=== PATIENT | male | born 1950 | race Caucasian/White ===

== ENCOUNTER 2020-03-04 14:02 | Emergency (ER) | payer OTHER, MEDICARE, SELFPAY ==
[2020-03-04] VITALS (15 sets, daily range): BP systolic 112–157; BP diastolic 68–98; PULSE 90–111; RESP 18–34; TEMP 36.4–37.2; O2SAT 93–96; BMI 29.1
--- NOTE | 2020-03-04 14:17 | DI.RAD.S_ITS ---
PROCEDURE: XR CHEST 1V INDICATIONS: flu-like symptoms TECHNIQUE: One view of the chest was acquired. COMPARISON: [facility], CT, CT ABDOMEN PELVIS WITH CONTRAST, 10/18/2018, 14:10. [facility], CR, XR CHEST 1 VIEW, 01/15/2020, 15:41. [facility], CR, XR CHEST 1 VIEW, 11/17/2018, 14:49. FINDINGS: Surgical changes and devices: Catheter overlying the right thorax. Lungs and pleura: There is mildly prominent pulmonary markings bilaterally. However, this appears similar to the prior exams. No consolidation. No pleural effusions or pneumothorax. Mediastinum: Mediastinal contours appear normal. Heart size is normal. Bones and chest wall: No suspicious bony lesions. Overlying soft tissues appear unremarkable. IMPRESSION: Mildly prominent pulmonary vascular markings bilaterally which are similar to the prior exams dating back to 2019. This could be due to infectious/inflammatory etiology, scarring or atelectasis. Dictated by: Demar Reed M.D. on 03/04/2020 at 14:18 Approved by: Demar Reed M.D. on 03/04/2020 at 14:20
[2020-03-04 14:19] LABS: Appearance Urine UA CLOUDY; Bilirubin Urine UA NEGATIVE (NEGATIVE); Color Urine UA YELLOW; Glucose Urine UA NEGATIVE (Negative); Ketones Urine UA NEGATIVE (NEGATIVE); Leukocyte Esterase Urine UA 2+ (NEGATIVE); Nitrite Urine UA POSITIVE (Negative); Occult Blood Urine UA 3+ (Negative); Protein Urine UA 1+ (Negative); Specific Gravity Urine UA 1.015 (1.000-1.035); Urobilinogen Urine UA 0.2 E.U./dL (0.2)
--- NOTE | 2020-03-04 14:22 | ED.FEVER ---
HPI - Fever General Chief Complaint: Fever Stated Complaint: fever and tachycardia Time Seen by Provider: 03/04/20 14:10 Source: patient and EMS Mode of arrival: EMS Limitations: no limitations History of Present Illness HPI Narrative: 69-year-old gentleman with a complex medical history. In June of 2018 he was diagnosed with hydrocephalus and a shunt was placed. He has had a couple of revisions to the shunt per his . In mid December she noticed that he had increasing fatigue weakness decreasing level of consciousness over 24 hours along with an increased right arm/hand tremor. In trying to get him to the hospital he ended up falling (there was a description of a fall a week prior as well), was seen at [facility] and diagnosed with a intracranial hemorrhage. He was admitted to [facility] from January 14 through February 16. He was followed by Neurosurgery but did not need neurosurgical intervention nor shunt revision. He was treated for UTI as well. He was eventually discharged home to [facility] [place] and has been doing fairly well there with progression to regular food a week ago and increasing strength. Today he was noted to have a fever and was reported to not be feeling well this morning. (global weakness no specific complaints), his noted to have an increase in his right upper extremity tremor. He is brought in for further evaluation. No complaints of cough, chest pain, palpitations, abdominal pain, vomiting, diarrhea, skin changes or skin breakdown, no dysuria or urgency and no flank pain. Related Data Previous Rx's Medication Instructions Recorded levofloxacin 750 mg PO DAILY #10 tab 03/04/20 Allergies Allergy/AdvReac Type Severity Reaction Status Date / Time No Known Drug Allergies Allergy Verified 03/04/20 14:14 Review of Systems Review of Systems Narrative: Remainder of review of systems including constitutional, ENT, cardiovascular, respiratory, GI, , musculoskeletal, skin, neurologic and psychiatric systems reviewed and are unremarkable except as noted in HPI. Patient History Medical History Hydrocephalus Intracranial hemorrhage Exam Narrative Exam Narrative: General: Frail and fatigued but in no acute distress. Can respond to direct questions with 1-2 word answers. HEENT: Moist mucous membranes, normal sclera with reactive pupils, Neck: No JVD, supple Respiratory: Lungs with rhonchi in the right base, no crackles, no wheezes. Full and symmetrical air movement Cardiac: Regular rate and rhythm, 4/6 systolic ejection murmur, no bruits Abdomen: Soft nontender good bowel tones, no flank pain, bruising from heparin injections Skin: Warm and dry, no rashes Neurologic: Globally weak, right upper extremity tremor at rest Extremities: No trauma, well perfused Psych: Cooperative, minimal direct interaction Initial Vital Signs Initial Vital Signs: Vital Signs Pulse Rate 111 H 03/04/20 14:11 Respiratory Rate 27 H 03/04/20 14:11 Pulse Oximetry 95 03/04/20 14:11 Course Orders Ordered: ED Orders 03/04/20 14:11 Urinalysis and Microscopic Stat Urine Culture Stat 03/04/20 14:15 EKG-12 Lead Stat 03/04/20 14:17 XR chest 1V Stat 03/04/20 14:48 COVID19 Stat Complete Blood Count AUTO DIFF Stat Comprehensive Metabolic Panel Stat Lactate (Lactic Acid) Stat Lipase Stat Partial Thromboplastin Time Stat Procalcitonin Stat Prothrombin Time INR Stat 03/04/20 15:51 Blood Culture Stat 03/04/20 16:25 CT head/brain wo con Stat Discontinued Medications Sodium Chloride (Normal Saline 0.9%) 1,000 mls @ 1,000 mls/hr IV BOLUS ONE Stop: 03/04/20 15:16 Last Infusion: 03/04/20 16:22 Dose: 0 mls/hr Documented by: Admin: 03/04/20 15:08 Dose: 1,000 mls/hr Documented by: JOSE Ceftriaxone Sodium/Dextrose (Rocephin) 2 gm in 50 mls @ 100 mls/hr IV NOW ONE Stop: 03/04/20 16:52 Last Infusion: 03/04/20 17:33 Dose: 0 mls/hr Documented by: Admin: 03/04/20 17:01 Dose: 100 mls/hr Documented by: JOSE Vital Signs Vital signs: Vital Signs - 8 hr 03/04/20 14:11 03/04/20 14:14 03/04/20 14:30 Temperature 99 F Pulse Rate 111 H 110 H 106 H Respiratory Rate 27 H 18 28 H Blood Pressure 142/98 H Pulse Oximetry 95 95 95 03/04/20 14:49 03/04/20 15:00 03/04/20 15:30 Temperature Pulse Rate 103 H 97 H 90 Respiratory Rate 26 H 24 19 Blood Pressure 135/84 112/68 118/74 Pulse Oximetry 94 93 94 03/04/20 16:00 03/04/20 16:30 03/04/20 17:00 Temperature 98.7 F Pulse Rate 97 H 92 H 93 H Respiratory Rate 28 H 25 H 26 H Blood Pressure 151/82 H 127/75 137/78 Pulse Oximetry 96 95 96 03/04/20 17:30 03/04/20 18:00 03/04/20 18:01 Temperature 97.5 F L Pulse Rate 94 H 103 H 103 H Respiratory Rate 27 H 31 H 34 H Blood Pressure 128/77 Pulse Oximetry 96 95 95 03/04/20 18:02 03/04/20 18:30 Temperature Pulse Rate 101 H 100 H Respiratory Rate 31 H 27 H Blood Pressure 157/72 H 128/79 Pulse Oximetry 95 94 MDM - Fever Medical Records Attestation: I reviewed the patient's medical records. Lab Data Attestation: I reviewed the patient's lab results. Lab results narrative: COVID negative Urine does appear to be infected Result diagrams: 03/04/20 14:48 03/04/20 14:48 Labs: Lab Results 03/04/20 03/04/20 03/04/20 Range/Units 14:11 14:48 14:48 WBC (4.5-11.0) X10^3/uL RBC (4.5-5.9) X10^6/uL Hgb (13.5-17.5) g/dL Hct (41-53) % MCV (80-100) fL MCH (26-34) PG MCHC (30-36) % RDW (11.6-14.8) % Plt Count (150-400) X10^3/uL Neut % (Auto) (50-75) % Lymph % (Auto) (25-40) % [place] % (Auto) (3-14) % Eos % (Auto) (2-4) % Baso % (Auto) (0-2) % Neut # (Auto) (2552-0689) /uL Lymph # (Auto) (1785-7114) /uL [place] # (Auto) (0-900) /uL Eos # (Auto) (0-450) /uL Baso # (Auto) (0-100) /uL PT 13.6 H (10.1-12.7) SECONDS INR 1.2 (0.9-1.3) APTT 34 (26.4-36.2) SECONDS Sodium 132 L (137-145) mmol/L Potassium 4.0 (3.4-5.1) mmol/L Chloride 99 (98-107) mmol/L Carbon Dioxide 27 (22-32) mmol/L BUN 11 (9-20) mg/dL Creatinine 0.71 (0.66-1.25) mg/dL Estimated GFR > 60.0 (>60) mL/min BUN/Creatinine Ratio 15.5 (6-22) Glucose 123 H (80-110) mg/dL Lactate (0.7-2.1) mmol/L Calcium 9.3 (8.4-10.2) mg/dL Total Bilirubin 0.8 (0.2-1.3) mg/dL AST 27 (17-59) IU/L ALT 34 (<50) IU/L Alkaline Phosphatase 66 (38-126) U/L Total Protein 7.2 (6.3-8.2) g/dL Albumin 4.1 (3.5-5.0) g/dL Globulin 3.1 (1.7-4.1) g/dL Albumin/Globulin Ratio 1.3 (1.0-2.8) Lipase 56 (23-300) U/L Procalcitonin (<0.5) ng/mL Urine Color Yellow Urine Appearance Cloudy Urine pH 6.0 (4.5-8.0) Ur Specific [place] 1.015 (1.000-1.035) Urine Protein 1+ H (Negative) Urine Glucose (UA) Negative (Negative) g/dL Urine Ketones Negative (NEGATIVE) Urine Occult Blood 3+ H (Negative) Urine Nitrate Positive (Negative) Urine Bilirubin Negative (NEGATIVE) Urine Urobilinogen 0.2 (0.2) E.U./dL Ur Leukocyte Esterase 2+ H (NEGATIVE) Urine RBC 10-30/hpf H (0-5/HPF) Urine WBC 30-100/hpf H (0-5/HPF) Urine Bacteria Many (>30) H (None) Ur Culture Indicated? Specimen cultured COVID-19 PCR (Negative) 03/04/20 03/04/20 03/04/20 Range/Units 14:48 14:48 14:48 WBC 18.6 H (4.5-11.0) X10^3/uL RBC 4.53 (4.5-5.9) X10^6/uL Hgb 14.7 (13.5-17.5) g/dL Hct 42.8 (41-53) % MCV 94.6 (80-100) fL MCH 32.5 (26-34) PG MCHC 34.3 (30-36) % RDW 12.3 (11.6-14.8) % Plt Count 215 (150-400) X10^3/uL Neut % (Auto) 82.9 H (50-75) % Lymph % (Auto) 10.0 L (25-40) % [place] % (Auto) 6.9 (3-14) % Eos % (Auto) 0.0 L (2-4) % Baso % (Auto) 0.2 (0-2) % Neut # (Auto) 35225 H (7805-7049) /uL Lymph # (Auto) 1900 (6479-1948) /uL [place] # (Auto) 1300 H (0-900) /uL Eos # (Auto) 0 (0-450) /uL Baso # (Auto) 0 (0-100) /uL PT (10.1-12.7) SECONDS INR (0.9-1.3) APTT (26.4-36.2) SECONDS Sodium (137-145) mmol/L Potassium (3.4-5.1) mmol/L Chloride (98-107) mmol/L Carbon Dioxide (22-32) mmol/L BUN (9-20) mg/dL Creatinine (0.66-1.25) mg/dL Estimated GFR (>60) mL/min BUN/Creatinine Ratio (6-22) Glucose (80-110) mg/dL Lactate 1.0 (0.7-2.1) mmol/L Calcium (8.4-10.2) mg/dL Total Bilirubin (0.2-1.3) mg/dL AST (17-59) IU/L ALT (<50) IU/L Alkaline Phosphatase (38-126) U/L Total Protein (6.3-8.2) g/dL Albumin (3.5-5.0) g/dL Globulin (1.7-4.1) g/dL Albumin/Globulin Ratio (1.0-2.8) Lipase (23-300) U/L Procalcitonin < 0.05 (<0.5) ng/mL Urine Color Urine Appearance Urine pH (4.5-8.0) Ur Specific [place] (1.000-1.035) Urine Protein (Negative) Urine Glucose (UA) (Negative) g/dL Urine Ketones (NEGATIVE) Urine Occult Blood (Negative) Urine Nitrate (Negative) Urine Bilirubin (NEGATIVE) Urine Urobilinogen (0.2) E.U./dL Ur Leukocyte Esterase (NEGATIVE) Urine RBC (0-5/HPF) Urine WBC (0-5/HPF) Urine Bacteria (None) Ur Culture Indicated? COVID-19 PCR (Negative) 03/04/20 Range/Units 14:48 WBC (4.5-11.0) X10^3/uL RBC (4.5-5.9) X10^6/uL Hgb (13.5-17.5) g/dL Hct (41-53) % MCV (80-100) fL MCH (26-34) PG MCHC (30-36) % RDW (11.6-14.8) % Plt Count (150-400) X10^3/uL Neut % (Auto) (50-75) % Lymph % (Auto) (25-40) % [place] % (Auto) (3-14) % Eos % (Auto) (2-4) % Baso % (Auto) (0-2) % Neut # (Auto) (4739-6403) /uL Lymph # (Auto) (6158-6117) /uL [place] # (Auto) (0-900) /uL Eos # (Auto) (0-450) /uL Baso # (Auto) (0-100) /uL PT (10.1-12.7) SECONDS INR (0.9-1.3) APTT (26.4-36.2) SECONDS Sodium (137-145) mmol/L Potassium (3.4-5.1) mmol/L Chloride (98-107) mmol/L Carbon Dioxide (22-32) mmol/L BUN (9-20) mg/dL Creatinine (0.66-1.25) mg/dL Estimated GFR (>60) mL/min BUN/Creatinine Ratio (6-22) Glucose (80-110) mg/dL Lactate (0.7-2.1) mmol/L Calcium (8.4-10.2) mg/dL Total Bilirubin (0.2-1.3) mg/dL AST (17-59) IU/L ALT (<50) IU/L Alkaline Phosphatase (38-126) U/L Total Protein (6.3-8.2) g/dL Albumin (3.5-5.0) g/dL Globulin (1.7-4.1) g/dL Albumin/Globulin Ratio (1.0-2.8) Lipase (23-300) U/L Procalcitonin (<0.5) ng/mL Urine Color Urine Appearance Urine pH (4.5-8.0) Ur Specific [place] (1.000-1.035) Urine Protein (Negative) Urine Glucose (UA) (Negative) g/dL Urine Ketones (NEGATIVE) Urine Occult Blood (Negative) Urine Nitrate (Negative) Urine Bilirubin (NEGATIVE) Urine Urobilinogen (0.2) E.U./dL Ur Leukocyte Esterase (NEGATIVE) Urine RBC (0-5/HPF) Urine WBC (0-5/HPF) Urine Bacteria (None) Ur Culture Indicated? COVID-19 PCR Negative (Negative) Imaging Data Chest x-ray: Radiologist's Impression: Mild prominent pulmonary vascular markings bilaterally which are similar to the prior exams dating back to 2019. This could be due to infectious/inflammatory etiology, scarring or atelectasis Dr Powell Call CT scan - head: Radiologist's Impression: FINDINGS: Image quality: Excellent. CSF spaces: Basal cisterns are patent. No extra-axial fluid collections. The lateral ventricles are now slit-like measuring 0.4 cm, previously for the right anterior horn measures 1.4 cm, and more remotely 1.8 cm on 11/17/2018. Right-sided LIQUID SUGAR FORTIFIER shunt with the catheter tip terminating in the region of the left thalamus, unchanged in position compared to 01/15/2020. No shunt discontinuity demonstrated. [place] at the right temporal region. No intraventricular hyperdense blood products are seen. 3rd and 4th ventricles are within normal limits and not significantly changed. Brain: No midline shift. No intracranial masses or hemorrhage. No area of hypodensity in a large vascular distribution to suggest acute infarction. Periventricular hypodensity consistent with chronic microvascular ischemic change. Age-related parenchymal loss. Skull and face: Calvarium and visualized facial bones are intact, without suspicious lesions. Sinuses: Visualized sinuses and mastoids are clear. IMPRESSION: 1. No acute intracranial hemorrhage. 2. The lateral ventricles are now slit-like which is substantially changed compared to the CT from December 2019. Query over shunting of the lateral ventricles. 3. Right LIQUID SUGAR FORTIFIER shunt with the tip in the region of the left thalamus is unchanged in position. 4. Similar periventricular hypodensity most compatible with chronic microvascular ischemic disease. Dictated by: Demar Reed M.D. on 03/04/2020 at 16:28 ECG Data Attestation: I personally reviewed and interpreted this ECG as follows: Interpretation: Sinus tachycardia at 109 Left anterior fascicular block Peaked T-waves (labs return with potassium at 4.0) No acute STT wave changes MDM Narrative Medical decision making narrative: 69-year-old gentleman with fever today slight increase tremor in his right upper extremity and ?not feeling well?. Urinalysis does look like he has a recurrent bladder infection. Chest x-ray does not look like in acute pneumonia. He is COVID negative. There is no evidence of intra-abdominal pain or tenderness on exam to suggest the more threatening intra-abdominal process. With all of his recent shunt and intracranial hemorrhage issues his appropriately requests a repeat CT scan. Will be administered 2 g of ceftriaxone for presumed UTI without evidence of sepsis. At this time, heart rate has come down, blood pressure is stable. No signs or symptoms of sepsis. Clearly has a urinary tract infection. CT scan shows lateral ventricle changes consistent with recent stay at [facility] and shunt change and manipulation. Patient is safe to go back to longterm facility. Have him continue with oral Levaquin until urine cultures return. He is COVID negative Discharge Plan Departure Patient Disposition: Home Clinical Impression: Urinary tract infection Qualifiers: Urinary tract infection type: acute cystitis Hematuria presence: without hematuria Qualified Code(s): N30.00 - Acute cystitis without hematuria Instructions: DI for Urinary Tract Infection (UTI) Activity Restrictions/Additional Instructions: Thank you for coming in today There is definitely a urinary tract infection and I suspect that that is causing majority of the symptoms today. You have been given 2 g of IV ceftriaxone, and antibiotic, in the emergency department along with some IV fluid. There are no signs of overwhelming infection or sepsis. The CT scan of your head shows no new intracranial bleeding and it appears that the LIQUID SUGAR FORTIFIER shunt is working appropriately at this time. I am going to have you complete a 10 day course of Levaquin orally. Your urine has been cultured and if this turns out to be the inappropriate antibiotic we will contact you to change it. Your COVID test was negative today If you have worsening symptoms, increasing confusion, worsening fever, hypotension or tachycardia you need to return to the emergency department Prescriptions: New levofloxacin 750 mg tablet 750 mg PO DAILY Qty: 10 RF: 0 Referrals: Gurmeet Ray ARNP [Primary Care Provider] -
[2020-03-04 14:24] LABS: RBC Urine 10-30/HPF (0-5/HPF); WBC Urine 30-100/HPF (0-5/HPF)
[2020-03-04 14:25] LABS: Bacteria Urine Many (>30); Culture Indicated Urine Specimen Cultured
--- NOTE | 2020-03-04 14:59 | PC.NURSE ---
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 Presents today with fever 101 at facility. tylenol given at facility and TMAX 99.0 on arrival to ED. Tachycardic 110, confused. Had negative COVID at facility. placed on precautions for high suspicion. Swabbed for COVID PCR, urine obtained. IV placed and sepsis workup drawn. Awaiting further orders.
[2020-03-04] MEDS: SODIUM CHLORIDE 0.9% 1,000 ML 1000 ML IV (15:08)
[2020-03-04 15:13] LABS: INR 1.2 (0.9-1.3); Prothrombin Time 13.6 SECONDS (10.1-12.7)
[2020-03-04 15:16] LABS: PTT Partial Thromboplastin Tim 34 SECONDS (26.4-36.2)
[2020-03-04 15:18] LABS: Alanine Aminotransferase 34 IU/L (<50); Albumin 4.1 g/dL (3.5-5.0); Albumin Globulin Ratio 1.3 (1.0-2.8); Alkaline Phosphatase 66 U/L (38-126); Aspartate Aminotransferase 27 IU/L (17-59); BUN Creatinine Ratio 15.5 (6-22); Bilirubin Total 0.8 mg/dL (0.2-1.3); Blood Urea Nitrogen 11 mg/dL (9-20); Calcium 9.3 mg/dL (8.4-10.2); Carbon Dioxide 27 mmol/L (22-32); Chloride 99 mmol/L (98-107); Estimated Glomerular Filt Rate > 60.0 mL/min (>60); Globulin 3.1 g/dL (1.7-4.1); Glucose 123 mg/dL (80-110); HEMOLYSIS 48 (0-50); Lipase 56 U/L (23-300); Sodium 132 mmol/L (137-145); Total Protein 7.2 g/dL (6.3-8.2)
[2020-03-04 15:20] LABS: Add Manual Diff / Slide Review NO; Basophils Absolute Auto 0 /uL (0-100); Basophils Percent Auto 0.2 % (0-2); Eosinophils Absolute Auto 0 /uL (0-450); Hematocrit 42.8 % (41-53); Hemoglobin 14.7 g/dL (13.5-17.5); Lymphocytes Absolute Auto 1900 /uL (1100-4500); Mean Corpuscular HGB Conc 34.3 % (30-36); Mean Corpuscular Hemoglobin 32.5 PG (26-34); Mean Corpuscular Volume 94.6 fL (80-100); Monocytes Absolute Auto 1300 /uL (0-900); Monocytes Percent Auto 6.9 % (3-14); Neutrophils Absolute Auto 15400 /uL (1500-7000); Neutrophils Percent Auto 82.9 % (50-75); Platelet Count 215 X10^3/uL (150-400); Red Blood Cell Count 4.53 X10^6/uL (4.5-5.9); Red Cell Distribution Width 12.3 % (11.6-14.8); White Blood Cell Count 18.6 X10^3/uL (4.5-11.0)
[2020-03-04 15:36] LABS: Procalcitonin < 0.05 ng/mL (<0.5)
[2020-03-04 15:59] LABS: COVID19 -Nasal RAPID Negative (Negative)
--- NOTE | 2020-03-04 16:25 | DI.CT.S_ITS ---
PROCEDURE: CT HEAD/BRAIN WO CON INDICATIONS: increased RUE tremor, recent head bleed, intracranital shunt TECHNIQUE: Noncontrast 4.5 mm thick angled axial sections acquired from the foramen magnum to the vertex, with coronal and sagittal reformats. For radiation dose reduction, the following was used: automated exposure control, adjustment of mA and/or kV according to patient size. COMPARISON: [facility], CT, CT HEAD WITHOUT CONTRAST, 11/17/2018, 13:57. [facility], CT, CT HEAD WITHOUT CONTRAST, 01/15/2020, 14:41. FINDINGS: Image quality: Excellent. CSF spaces: Basal cisterns are patent. No extra-axial fluid collections. The lateral ventricles are now slit-like measuring 0.4 cm, previously for the right anterior horn measures 1.4 cm, and more remotely 1.8 cm on 11/17/2018. Right-sided NEW MEDIA STRATEGIST shunt with the catheter tip terminating in the region of the left thalamus, unchanged in position compared to 01/15/2020. No shunt discontinuity demonstrated. [place] at the right temporal region. No intraventricular hyperdense blood products are seen. 3rd and 4th ventricles are within normal limits and not significantly changed. Brain: No midline shift. No intracranial masses or hemorrhage. No area of hypodensity in a large vascular distribution to suggest acute infarction. Periventricular hypodensity consistent with chronic microvascular ischemic change. Age-related parenchymal loss. Skull and face: Calvarium and visualized facial bones are intact, without suspicious lesions. Sinuses: Visualized sinuses and mastoids are clear. IMPRESSION: 1. No acute intracranial hemorrhage. 2. The lateral ventricles are now slit-like which is substantially changed compared to the CT from December 2019. Query over shunting of the lateral ventricles. 3. Right NEW MEDIA STRATEGIST shunt with the tip in the region of the left thalamus is unchanged in position. 4. Similar periventricular hypodensity most compatible with chronic microvascular ischemic disease. Dictated by: Demar Reed M.D. on 03/04/2020 at 16:28 Approved by: Demar Reed M.D. on 03/04/2020 at 16:37
[2020-03-04] MEDS: CEFTRIAXONE 2 GM/50 ML FROZ.PIGGY IV (17:01)
== END 2020-03-04 20:30 | disposition home or self-care (01) ==
PROVIDERS: Emergency Provider Emergency Medicine; PCP Nurse Practitioner Family
DX: N30.00 Acute cystitis without hematuria (principal); R00.0 Tachycardia, unspecified; G91.9 Hydrocephalus, unspecified
CPT/HCPCS: 36415; 70450; 71045; 80053; 81001; 83605; 83690; 84145; 85025; 85610; 85730; 87040; 87077; 87086; 87186; 87635; 93005; 93010; 96361; 96365; 99283; 99284; J0696

== ENCOUNTER → 2020-03-06 13:38 | Outpatient (CLI) | payer SELFPAY ==
--- NOTE | 2020-03-06 | DI.RAD.S_ITS ---
PROCEDURE: XR FOOT RT 2V INDICATIONS: FOOT PAIN TECHNIQUE: 2 views of the foot were acquired. COMPARISON: None. FINDINGS: Bones: No fracture. Mild to moderate 1st MTP joint degeneration. Postsurgical sequela related to partially visualized intramedullary elisha in the distal femur. There are chronic tibial and fibular fracture deformities and callus formation. Hindfoot and midfoot degenerative spurring and sclerosis. Soft tissues: Scattered vascular calcifications noted. IMPRESSION: No acute fracture identified. Chronic postsurgical and degenerative changes as above Dictated by: Jean Carlos Posadas M.D. on 03/06/2020 at 14:31 Approved by: Jean Carlos Posadas M.D. on 03/06/2020 at 14:33
== END ==
PROVIDERS: PCP Nurse Practitioner; Referring Provider Nurse Practitioner; Visit Provider Nurse Practitioner
DX: M79.671 Pain in right foot (principal); M19.071 Primary osteoarthritis, right ankle and foot
CPT/HCPCS: 73620

== ENCOUNTER → 2020-03-13 16:00 | Outpatient (CLI) | payer MEDICARE, SELFPAY ==
--- NOTE | 2020-03-13 16:01 | DI.CT.S_ITS ---
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 For radiation dose reduction, the following was used: automated exposure control, adjustment of mA and/or kV according to patient size. COMPARISON: [facility], CT, CT HEAD WITHOUT CONTRAST, 01/15/2020, 14:41. [facility], CT, CT HEAD/BRAIN WO CON, 03/04/2020, 16:51. FINDINGS: Image quality: Excellent. CSF spaces: Basal cisterns are patent. No extra-axial fluid collections. The ventricles are symmetric in size and shape. Brain: No intracranial bleeds or masses. There is cerebral volume loss for age, with resultant ventricular and sulcal prominence. There are periventricular and deep white matter chronic small vessel ischemic changes. There is intracranial internal carotid artery atherosclerosis. A ventriculostomy crosses the right cerebrum and intersects the right and left lateral ventricles, stable over time from prior head CT scanning 01/15/20. Skull and face: Calvarium and visualized facial bones appear intact, without suspicious lesions. Sinuses: Visualized sinuses and mastoids are clear. IMPRESSION: Stable appearance of a a diagonal transverse a ventriculostomy intersecting the ventricles bilaterally, as has been previously the case. No dislodgement of this structure is noted, no intracranial hemorrhage is found. Dictated by: Kain Jimenez M.D. on 03/13/2020 at 17:01 Approved by: Kain Jimenez M.D. on 03/13/2020 at 17:03
== END ==
PROVIDERS: PCP Nurse Practitioner; Referring Provider Nurse Practitioner; Visit Provider Nurse Practitioner
DX: I62.9 Nontraumatic intracranial hemorrhage, unspecified (principal); I65.29 Occlusion and stenosis of unspecified carotid artery; Z98.2 Presence of cerebrospinal fluid drainage device
CPT/HCPCS: 70450

== ENCOUNTER 2020-03-17 12:08 | Emergency (ER) | payer OTHER, MEDICARE, SELFPAY ==
[2020-03-17] VITALS (14 sets, daily range): BP systolic 119–177; BP diastolic 77–99; PULSE 94–121; RESP 11–56; TEMP 36.2; O2SAT 87–95
--- NOTE | 2020-03-17 12:07 | ED_ITS ---
HPI - Altered Mental Status General Chief Complaint: Altered Mental Status Stated Complaint: ALOC Time Seen by Provider: 03/17/20 12:08 Source: patient and EMS Mode of arrival: EMS Limitations: altered mental status History of Present Illness HPI narrative: 69-year-old male with a history of hydrocephalus and shunt as well as prior intracranial hemorrhage presents from a local [facility] facility in the chief complaint of altered mental status. He had gone to bed last night in his normal state of health and upon waking this morning they found him to be altered, unresponsive with a GCS of 10. EMS was activated and he presents with code stroke activation, directly to CT scan. There has been no report of trauma, fall or fever. He has apparently had no change in medications. Related Data Previous Rx's Medication Instructions Recorded levofloxacin 750 mg PO DAILY #10 tab 03/04/20 Allergies Allergy/AdvReac Type Severity Reaction Status Date / Time No Known Drug Allergies Allergy Verified 03/17/20 12:26 Review of Systems Review of Systems ROS Unobtainable: Unobtainable due to mental status/LOC Patient History Medical History Hydrocephalus Intracranial hemorrhage Social History Smoking Status: Never smoker Exam Narrative Exam Narrative: GENERAL: [69] year old patient appears stated age. Well- nourished, well-developed patient, in mild distress. Confused, largely non- verbal. Controlling secrtions fine. Resting tremor R > L upper extremity HEAD: Atraumatic. Normocephalic. EYES: Pupils equal round and reactive. Extraocular motions intact. No scleral icterus. No injection or drainage. ENT: Nose without bleeding, purulent drainage. Throat without erythema, tonsillar hypertrophy or exudate. Airway patent. NECK: Trachea midline. Non tender CARDIOVASCULAR: Regular rate and rhythm without murmurs, gallops, or rubs. RESPIRATORY: Clear to auscultation. Breath sounds equal bilaterally. No wheezes, rales, or rhonchi. GASTROINTESTINAL: Abdomen soft, non-tender, nondistended. EXTREMITIES: No edema or joint tenderness. BACK: Nontender without deformity or crepitance. No flank tenderness. NEURO: Awake. Some waxing and waning of alertness. SKIN: No rash or erythema of visible areas Initial Vital Signs Initial Vital Signs: Vital Signs Temperature 97.1 F L 03/17/20 12:26 Pulse Rate 115 H 03/17/20 12:26 Respiratory Rate 24 03/17/20 12:26 Blood Pressure 177/99 H 03/17/20 12:26 Pulse Oximetry 95 03/17/20 12:26 Course Orders Ordered: ED Orders 03/17/20 12:09 CT head/brain wo con Stat 03/17/20 12:25 COVID19 Stat Complete Blood Count AUTO DIFF Stat Lactate (Lactic Acid) Stat 03/17/20 13:00 Blood Culture Stat 03/17/20 13:25 Urine Drug Screen, Rapid Stat Urine Microscopic Stat 03/17/20 13:42 Acetaminophen Stat Comprehensive Metabolic Panel Stat Ethanol (ETOH) Stat Partial Thromboplastin Time Stat Prolactin Stat Prothrombin Time INR Stat Salicylate Stat Thyroid Stimulating Hormone Stat Sodium Chloride (Normal Saline 0.9%) 1,000 mls @ 150 mls/hr IV CONT PAVEL Last Infusion: 03/17/20 19:00 Dose: 150 mls/hr Documented by: Admin: 03/17/20 12:58 Dose: 150 mls/hr Documented by: RENETTA Discontinued Medications Nitroglycerin (Nitroglycerin 0.4 Mg Sl Tab) 0.4 mg SL [id number] PRN PRN Reason: Chest Pain Vital Signs Vital signs: Vital Signs - 8 hr 03/17/20 12:26 03/17/20 12:32 03/17/20 13:00 Temperature 97.1 F L Pulse Rate 115 H 110 H 101 H Respiratory Rate 24 25 H 16 Blood Pressure 177/99 H 141/87 H Pulse Oximetry 95 87 L 93 03/17/20 13:30 03/17/20 14:00 03/17/20 14:30 Temperature Pulse Rate 101 H 94 H 101 H Respiratory Rate 20 26 H 28 H Blood Pressure 131/83 140/86 143/90 H Pulse Oximetry 94 93 93 03/17/20 15:00 03/17/20 15:30 03/17/20 16:00 Temperature Pulse Rate 99 H 121 H 105 H Respiratory Rate 26 H 11 L 23 Blood Pressure 136/87 142/92 H 141/90 H Pulse Oximetry 94 94 93 03/17/20 16:30 03/17/20 17:00 03/17/20 17:30 Temperature Pulse Rate 100 H 94 H 121 H Respiratory Rate 19 23 27 H Blood Pressure 128/81 119/77 159/93 H Pulse Oximetry 91 92 93 03/17/20 18:00 03/17/20 18:30 Temperature Pulse Rate 118 H 98 H Respiratory Rate 56 H 21 Blood Pressure 147/87 H 136/80 Pulse Oximetry 92 91 MDM - Altered Mental Status Lab Data Result diagrams: 03/17/20 12:25 03/17/20 13:42 Labs: Lab Results 03/17/20 03/17/20 03/17/20 Range/Units 12: 12: 12: WBC 8.5 (4.5-11.0) X10^3/uL RBC 4.90 (4.5-5.9) X10^6/uL Hgb 15.8 (13.5-17.5) g/dL Hct 45.9 (41-53) % MCV 93.6 (80-100) fL MCH 32.2 (26-34) PG MCHC 34.5 (30-36) % RDW 12.5 (11.6-14.8) % Plt Count 177 (150-400) X10^3/uL Neut % (Auto) 53.6 (50-75) % Lymph % (Auto) 38.3 (25-40) % Whiteside % (Auto) 6.3 (3-14) % Eos % (Auto) 0.8 L (2-4) % Baso % (Auto) 1.0 (0-2) % Neut # (Auto) 4500 (1930-0553) /uL Lymph # (Auto) 3300 (5783-2408) /uL Whiteside # (Auto) 500 (0-900) /uL Eos # (Auto) 100 (0-450) /uL Baso # (Auto) 100 (0-100) /uL PT (10.1-12.7) SECONDS INR (0.9-1.3) APTT (26.4-36.2) SECONDS Sodium (137-145) mmol/L Potassium (3.4-5.1) mmol/L Chloride (98-107) mmol/L Carbon Dioxide (22-32) mmol/L BUN (9-20) mg/dL Creatinine (0.66-1.25) mg/dL Estimated GFR (>60) mL/min BUN/Creatinine Ratio (6-22) Glucose (80-110) mg/dL Lactate 1.6 (0.7-2.1) mmol/L Calcium (8.4-10.2) mg/dL Total Bilirubin (0.2-1.3) mg/dL AST (17-59) IU/L ALT (<50) IU/L Alkaline Phosphatase (38-126) U/L Total Protein (6.3-8.2) g/dL Albumin (3.5-5.0) g/dL Globulin (1.7-4.1) g/dL Albumin/Globulin Ratio (1.0-2.8) TSH (0.47-4.68) uIU/mL Prolactin (3.7-17.9) ng/mL Urine RBC (0-5/HPF) Urine WBC (0-5/HPF) Ur Squamous Epith Cells (0-5/HPF) Urine Bacteria (None) Ur Culture Indicated? Salicylates (<20) mg/dL U Opiates 300ng/mL cut (Negative) Ur Oxycodone Screen (Negative) Urine Methadone Screen (Negative) Acetaminophen (10-30) ug/mL Ur Barbiturates Screen (Negative) U Tricyclic Antidepress (Negative) Ur Phencyclidine Scrn (Negative) Ur Amphetamines Screen (Negative) U Methamphetamines Scrn (Negative) Ur MDMA Scrn (Ecstasy) (Negative) U Benzodiazepines Scrn (Negative) Urine Cocaine Screen (Negative) U Marijuana (THC) Screen (Negative) Ethyl Alcohol ( - 10) mg/dL COVID-19 PCR Negative (Negative) 03/17/20 03/17/20 03/17/20 Range/Units 13:25 13:25 13:42 WBC (4.5-11.0) X10^3/uL RBC (4.5-5.9) X10^6/uL Hgb (13.5-17.5) g/dL Hct (41-53) % MCV (80-100) fL MCH (26-34) PG MCHC (30-36) % RDW (11.6-14.8) % Plt Count (150-400) X10^3/uL Neut % (Auto) (50-75) % Lymph % (Auto) (25-40) % Whiteside % (Auto) (3-14) % Eos % (Auto) (2-4) % Baso % (Auto) (0-2) % Neut # (Auto) (9496-0191) /uL Lymph # (Auto) (0740-9313) /uL Whiteside # (Auto) (0-900) /uL Eos # (Auto) (0-450) /uL Baso # (Auto) (0-100) /uL PT 12.5 (10.1-12.7) SECONDS INR 1.1 (0.9-1.3) APTT 32 (26.4-36.2) SECONDS Sodium (137-145) mmol/L Potassium (3.4-5.1) mmol/L Chloride (98-107) mmol/L Carbon Dioxide (22-32) mmol/L BUN (9-20) mg/dL Creatinine (0.66-1.25) mg/dL Estimated GFR (>60) mL/min BUN/Creatinine Ratio (6-22) Glucose (80-110) mg/dL Lactate (0.7-2.1) mmol/L Calcium (8.4-10.2) mg/dL Total Bilirubin (0.2-1.3) mg/dL AST (17-59) IU/L ALT (<50) IU/L Alkaline Phosphatase (38-126) U/L Total Protein (6.3-8.2) g/dL Albumin (3.5-5.0) g/dL Globulin (1.7-4.1) g/dL Albumin/Globulin Ratio (1.0-2.8) TSH (0.47-4.68) uIU/mL Prolactin (3.7-17.9) ng/mL Urine RBC 1-5/hpf (0-5/HPF) Urine WBC 0-1/hpf (0-5/HPF) Ur Squamous Epith Cells 0-1 /hpf (0-5/HPF) Urine Bacteria None seen (None) Ur Culture Indicated? Cult not indicated Salicylates (<20) mg/dL U Opiates 300ng/mL cut Negative (Negative) Ur Oxycodone Screen Positive H (Negative) Urine Methadone Screen Negative (Negative) Acetaminophen (10-30) ug/mL Ur Barbiturates Screen Negative (Negative) U Tricyclic Antidepress Negative (Negative) Ur Phencyclidine Scrn Negative (Negative) Ur Amphetamines Screen Negative (Negative) U Methamphetamines Scrn Negative (Negative) Ur MDMA Scrn (Ecstasy) Negative (Negative) U Benzodiazepines Scrn Negative (Negative) Urine Cocaine Screen Negative (Negative) U Marijuana (THC) Screen Negative (Negative) Ethyl Alcohol ( - 10) mg/dL COVID-19 PCR (Negative) 03/17/20 03/17/20 Range/Units 13:42 13:42 WBC (4.5-11.0) X10^3/uL RBC (4.5-5.9) X10^6/uL Hgb (13.5-17.5) g/dL Hct (41-53) % MCV (80-100) fL MCH (26-34) PG MCHC (30-36) % RDW (11.6-14.8) % Plt Count (150-400) X10^3/uL Neut % (Auto) (50-75) % Lymph % (Auto) (25-40) % Whiteside % (Auto) (3-14) % Eos % (Auto) (2-4) % Baso % (Auto) (0-2) % Neut # (Auto) (5828-2581) /uL Lymph # (Auto) (2921-0007) /uL Whiteside # (Auto) (0-900) /uL Eos # (Auto) (0-450) /uL Baso # (Auto) (0-100) /uL PT (10.1-12.7) SECONDS INR (0.9-1.3) APTT (26.4-36.2) SECONDS Sodium 136 L (137-145) mmol/L Potassium 4.5 (3.4-5.1) mmol/L Chloride 105 (98-107) mmol/L Carbon Dioxide 29 (22-32) mmol/L BUN 9 (9-20) mg/dL Creatinine 0.65 L (0.66-1.25) mg/dL Estimated GFR > 60.0 (>60) mL/min BUN/Creatinine Ratio 13.8 (6-22) Glucose 108 (80-110) mg/dL Lactate (0.7-2.1) mmol/L Calcium 9.5 (8.4-10.2) mg/dL Total Bilirubin 0.8 (0.2-1.3) mg/dL AST 37 (17-59) IU/L ALT 32 (<50) IU/L Alkaline Phosphatase 68 (38-126) U/L Total Protein 7.0 (6.3-8.2) g/dL Albumin 3.9 (3.5-5.0) g/dL Globulin 3.1 (1.7-4.1) g/dL Albumin/Globulin Ratio 1.3 (1.0-2.8) TSH 0.465 L (0.47-4.68) uIU/mL Prolactin 10.6 (3.7-17.9) ng/mL Urine RBC (0-5/HPF) Urine WBC (0-5/HPF) Ur Squamous Epith Cells (0-5/HPF) Urine Bacteria (None) Ur Culture Indicated? Salicylates < 1.0 (<20) mg/dL U Opiates 300ng/mL cut (Negative) Ur Oxycodone Screen (Negative) Urine Methadone Screen (Negative) Acetaminophen < 10 L (10-30) ug/mL Ur Barbiturates Screen (Negative) U Tricyclic Antidepress (Negative) Ur Phencyclidine Scrn (Negative) Ur Amphetamines Screen (Negative) U Methamphetamines Scrn (Negative) Ur MDMA Scrn (Ecstasy) (Negative) U Benzodiazepines Scrn (Negative) Urine Cocaine Screen (Negative) U Marijuana (THC) Screen (Negative) Ethyl Alcohol < 10 ( - 10) mg/dL COVID-19 PCR (Negative) Point of Care Testing Glucose POC 99 Urine Dip Bedside Urine Glucose Negative Bedside Urine Bilirubin - Negative Bedside Urine Ketone - Negative Urine Specific [place] 1.015 Bedside Urine Occult Blood + Bedside Urine pH 7.5 Bedside Urine Protein - Negative Bedside Urine Urobilinogen - Negative Bedside Urine Nitrite - Negative Bedside Urine Leukocytes - Negative Esterase Imaging Data CT scan - head: Radiologist's Impression: [address] [id number] Scan ReportSigned Patient: Ortiz EdenMR#: [id number]: 1Acct:[id number]/Sex: 69 / MDate of Service: 03/13/20Loc: CTAccession Number: [id number] Procedure: CT head/brain wo con Ordering Provider: Valentina Tony PROCEDURE: CT HEAD/BRAIN WO CON INDICATIONS: [employer] Shunt to Rule out bleed or dislodgement TECHNIQUE: Noncontrast 4.5 mm thick angled axial sections acquired from the foramen magnum to the vertex, with coronal and sagittal reformats. For radiation dose reduction, the following was used: automated exposure control, adjustment of mA and/or kV according to patient size. COMPARISON: [facility], CT, CT HEAD WITHOUT CONTRAST, 01/15/2020, 14:41. [facility], CT, CT HEAD/BRAIN WO CON, 03/04/2020, 16:51. FINDINGS: Image quality: Excellent. CSF spaces: Basal cisterns are patent. No extra-axial fluid collections. The ventricles are symmetric in size and shape. Brain: No intracranial bleeds or masses. There is cerebral volume loss for age, with resultant ventricular and sulcal prominence. There are periventricular and deep white matter chronic small vessel ischemic changes. There is intracranial internal carotid artery atherosclerosis. A ventriculostomy crosses the right cerebrum and intersects the right and left lateral ventricles, stable over time from prior head CT scanning 01/15/20. Skull and face: Calvarium and visualized facial bones appear intact, without suspicious lesions. Sinuses: Visualized sinuses and mastoids are clear. IMPRESSION: Stable appearance of a a diagonal transverse a ventriculostomy intersecting the ventricles bilaterally, as has been previously the case. No dislodgement of this structure is noted, no intracranial hemorrhage is found. Dictated by: Kain Jimenez M.D. on 03/13/2020 at 17:01 Approved by: Kain Jimenez M.D. on 03/13/2020 at 17:03 [facility] Narrative Medical decision making narrative: call to [facility]. Neurosurgery has reviewed CT and though it is stable for us, there is noted swelling of ventricles compared to their studies. He recommends transfer and they will tap his shunt and make decisions from there. No recommendations for us in ED. Critical Care Time Critical Care Time Critical Care Time: Yes Total Critical Care Time: 30 Attestation: The high probability of a clinically significant, sudden or life threatening deterioration of the [NV] system(s) required my full and direct attention, intervention and personal management. The aggregate critical care time was [30] minutes. This time is in addition to time spent performing reported procedures but includes the following: [x] Data Review and interpretation [x] Patient assessment and monitoring of vital signs [x] Documentation [x] Medication orders and management Discharge Plan Departure Prescriptions: No Action levofloxacin 750 mg tablet 750 mg PO DAILY Qty: 10 RF: 0
--- NOTE | 2020-03-17 12:09 | DI.CT.S_ITS ---
PROCEDURE: CT HEAD/BRAIN WO CON INDICATIONS: altered TECHNIQUE: Noncontrast 4.5 mm thick angled axial sections acquired from the foramen magnum to the vertex, with coronal and sagittal reformats. For radiation dose reduction, the following was used: automated exposure control, adjustment of mA and/or kV according to patient size. COMPARISON: [facility], CT, CT HEAD WITHOUT CONTRAST, 01/15/2020, 14:41. [facility], CT, CT HEAD/BRAIN WO CON, 03/13/2020, 16:31. [facility], CT, CT HEAD/BRAIN WO CON, 03/04/2020, 16:51. FINDINGS: Image quality: Image degraded by moderate patient motion artifact. CSF spaces: No abnormal extra-axial fluid collections identified. There has been interval change in size and configuration of the bilateral lateral ventricles. Previously, the ventricles appear more slit like and was questioned to represent over shunting. The overall configuration of the ventricles appears similar to that seen on January 15, 2020 CT. Persistent layering hyperdense material in the posterior horn of the bilateral lateral ventricles. This is decreased in size and conspicuity. Brain: No definite acute intracranial bleeds or masses given degree of patient motion artifact. There is cerebral volume loss for age, with resultant ventricular and sulcal prominence. There are periventricular and deep white matter chronic small vessel ischemic changes. A right-sided ventriculoperitoneal shunt is again noted which enters the right calvarium near the parietal bone. It extends across both the right and left lateral ventricle terminating near the left thalamus. This stable in positioning. Skull and face: Calvarium and visualized facial bones appear intact, without definite fracture or suspicious lesions. Sinuses: Visualized sinuses and mastoids appear clear. IMPRESSION: 1. Limited evaluation of the head secondary to significant patient motion artifact. Within this limitation, the lateral ventricles now appear less slit-like and demonstrates similar size and configuration when compared to January 15, 2020 CT. 2. Persistent but decreased amount of layering hyperdense material within the posterior horn of the bilateral lateral ventricles, likely representing hemorrhage. 3. No CT evidence for mass or mass effect. 4. Stable positioning of right sided ventriculoperitoneal shunt. Findings were discussed with Dr. Olivares of the emergency department at 1237 hrs. Dictated by: Tu Sanchez M.D. on 03/17/2020 at 12:28 Approved by: Tu Sanchez M.D. on 03/17/2020 at 12:40
[2020-03-17 12:40] LABS: Add Manual Diff / Slide Review NO; Basophils Absolute Auto 100 /uL (0-100); Eosinophils Absolute Auto 100 /uL (0-450); Eosinophils Percent Auto 0.8 % (2-4); Hematocrit 45.9 % (41-53); Hemoglobin 15.8 g/dL (13.5-17.5); Lymphocytes Absolute Auto 3300 /uL (1100-4500); Lymphocytes Percent Auto 38.3 % (25-40); Mean Corpuscular HGB Conc 34.5 % (30-36); Mean Corpuscular Hemoglobin 32.2 PG (26-34); Mean Corpuscular Volume 93.6 fL (80-100); Monocytes Absolute Auto 500 /uL (0-900); Monocytes Percent Auto 6.3 % (3-14); Neutrophils Absolute Auto 4500 /uL (1500-7000); Neutrophils Percent Auto 53.6 % (50-75); Red Cell Distribution Width 12.5 % (11.6-14.8); White Blood Cell Count 8.5 X10^3/uL (4.5-11.0)
[2020-03-17 12:46] LABS: Lactate (Lactic Acid) 1.6 mmol/L (0.7-2.1)
[2020-03-17 12:51] LABS: COVID19 -Nasal RAPID Negative (Negative)
[2020-03-17] MEDS: SODIUM CHLORIDE 0.9% 1,000 ML 150 ML IV (12:58)
[2020-03-17 13:44] LABS: Platelet Count 177 X10^3/uL (150-400)
[2020-03-17 13:48] LABS: Bacteria Urine None Seen
[2020-03-17 13:56] LABS: Culture Indicated Urine Cult Not Indicated; RBC Urine 1-5/HPF (0-5/HPF); Squamous Epithelial Cell Urine 0-1 /HPF (0-5/HPF); UR Morphine/Opiate cutoff 300 Negative (Negative); Ur Creatinine Normal (Normal); Ur Specific Gravity Normal (Normal); Urine Amphetamines Negative (Negative); Urine Barbiturates Negative (Negative); Urine Benzodiazepines Negative (Negative); Urine Cocaine Negative (Negative); Urine MDMA Negative (Negative); Urine Methadone Negative (Negative); Urine Methamphetamines Negative (Negative); Urine Oxycodone Positive (Negative); Urine Phencyclidine Negative (Negative); Urine Tetrahydrocannabinol Negative (Negative); Urine Tricyclic Antidepressant Negative (Negative); Urine pH Normal (Normal); WBC Urine 0-1/HPF (0-5/HPF)
[2020-03-17 14:49] LABS: INR 1.1 (0.9-1.3); Prothrombin Time 12.5 SECONDS (10.1-12.7)
[2020-03-17 14:52] LABS: Acetaminophen < 10 ug/mL (10-30); Alanine Aminotransferase 32 IU/L (<50); Albumin 3.9 g/dL (3.5-5.0); Albumin Globulin Ratio 1.3 (1.0-2.8); Alkaline Phosphatase 68 U/L (38-126); Aspartate Aminotransferase 37 IU/L (17-59); BUN Creatinine Ratio 13.8 (6-22); Bilirubin Total 0.8 mg/dL (0.2-1.3); Blood Urea Nitrogen 9 mg/dL (9-20); Calcium 9.5 mg/dL (8.4-10.2); Carbon Dioxide 29 mmol/L (22-32); Chloride 105 mmol/L (98-107); Estimated Glomerular Filt Rate > 60.0 mL/min (>60); Ethanol (ETOH) < 10 mg/dL; Globulin 3.1 g/dL (1.7-4.1); Glucose 108 mg/dL (80-110); HEMOLYSIS 28 (0-50); PTT Partial Thromboplastin Tim 32 SECONDS (26.4-36.2); Potassium 4.5 mmol/L (3.4-5.1); Salicylate < 1.0 mg/dL (<20); Sodium 136 mmol/L (137-145)
[2020-03-17 15:09] LABS: Prolactin 10.6 ng/mL (3.7-17.9)
[2020-03-17 15:49] LABS: Thyroid Stimulating Hormone 0.465 uIU/mL (0.47-4.68)
== END 2020-03-17 19:00 | disposition short-term general hospital (02) ==
LOC: ED 12:24
PROVIDERS: Emergency Provider Emergency Medicine; PCP Nurse Practitioner Family
DX: I62.9 Nontraumatic intracranial hemorrhage, unspecified (principal); G91.9 Hydrocephalus, unspecified; Z20.828 Contact with and (suspected) exposure to other viral communicable diseases
CPT/HCPCS: 36415; 70450; 80053; 80305; 80320; 80329; 81003; 81015; 82962; 83605; 84146; 84443; 85025; 85610; 85730; 87040; 87635; 96360; 96361; 99283; 99291; G0480

== ENCOUNTER 2020-04-14 16:16 | Emergency (ER) | payer OTHER, MEDICARE, SELFPAY ==
[2020-04-14] VITALS (12 sets, daily range): BP systolic 102–151; BP diastolic 46–88; PULSE 85–122; RESP 16–18; O2SAT 82–97
--- NOTE | 2020-04-14 | DI.CT.S_ITS ---
PROCEDURE: CT HEAD/BRAIN WO CON INDICATIONS: MODIFIED TRAUMA TECHNIQUE: Noncontrast 4.5 mm thick angled axial sections acquired from the foramen magnum to the vertex, with coronal and sagittal reformats. For radiation dose reduction, the following was used: automated exposure control, adjustment of mA and/or kV according to patient size. COMPARISON: [facility], CT, CT HEAD/BRAIN WO CON, 03/17/2020, 12:08. [facility], CT, CT HEAD/BRAIN WO CON, 03/13/2020, 16:31. FINDINGS: Image quality: Excellent. CSF spaces: Basal cisterns are patent. No extra-axial fluid collections. The ventricles are symmetric in size and shape. Note is made of a prior ventriculostomy extending from right calvarium across the midline. Brain: No intracranial masses. There is a small new focus of increased radiodensity within the brain parenchyma, within the centrum semiovale on the right in an area previously normal 03/17/20. There is cerebral volume loss for age, with resultant ventricular and sulcal prominence. There are periventricular and deep white matter chronic small vessel ischemic changes. There is intracranial internal carotid artery atherosclerosis. Skull and face: Calvarium and visualized facial bones appear intact, without suspicious lesions. Sinuses: Visualized sinuses and mastoids are clear. IMPRESSION: Metal artifact from a ventriculostomy site is present superficially over the right calvarium deep to the surface component of the ventriculostomy. The ventricular ostomy catheter crosses the midline as has been previously the case. There is a small focus of new high density material within the deep white matter in this area, measuring 5 x 9 mm in maximal dimension. By appearance this would be suspected to represent a very small amount of subacute or acute hemorrhage if trauma has occurred. Findings immediately called to and discussed with Dr. Gabriel, caring for the patient in the emergency room. Dictated by: Kain Jimenez M.D. on 04/14/2020 at 16:32 Approved by: Kain Jimenez M.D. on 04/14/2020 at 16:39
--- NOTE | 2020-04-14 16:58 | ED_ITS ---
HPI - Head Injury General Chief complaint: Head Injury Stated complaint: Fall out of bed,on heparin,lac over left eye Time Seen by Provider: 04/14/20 16:21 Source: patient and EMS Mode of arrival: EMS Limitations: no limitations History of Present Illness HPI Narrative: Patient is a 69-year-old male. On anticoagulation. Resident at nursing facility across the street to fell while getting out of bed hitting his forehead on an IV pole. There was no loss of consciousness. He did sustain a cut to his left forehead. He describes no neck pain. No injuries other than his head injury. Is brought in by EMS. Related Data Previous Rx's Medication Instructions Recorded levofloxacin 750 mg PO DAILY #10 tab 03/04/20 Allergies Allergy/AdvReac Type Severity Reaction Status Date / Time No Known Drug Allergies Allergy Verified 04/14/20 16:22 Review of Systems Constitutional Constitutional: Denies fever(s) and Denies headache(s) Eyes Eyes: Denies blurry vision ENT Ears, Nose, Mouth, and Throat: Denies vertigo, Denies dizziness and Denies headache(s) Cardiovascular Cardiovascular: Denies chest pain and Denies dyspnea Respiratory Respiratory: Denies cough and Denies dyspnea Gastrointestinal Gastrointestinal: Denies abdominal pain Musculoskeletal Musculoskeletal: Denies arthralgias and Denies myalgias Integumentary/Breasts Skin/Breast: Denies lesions and Denies rash Neurologic Neurologic: Denies behavioral changes, Denies vertigo, Denies dizziness and Denies headache(s) Psychiatric Psychiatric: Denies behavioral changes Hematologic/Lymphatic On Anticoagulants: Yes Allergic/Immunologic Allergic/Immunologic: Denies urticaria Patient History Medical History Hydrocephalus Intracranial hemorrhage Social History Smoking Status: Never smoker Smoking Status: Never smoker alcohol intake frequency: 3 or more drinks per day Alcohol type: beer Substance Use Type: does not use Exam Initial Vital Signs Initial Vital Signs: Vital Signs Pulse Rate 115 H 04/14/20 16:18 Respiratory Rate 16 04/14/20 16:18 Blood Pressure 130/83 04/14/20 16:18 Pulse Oximetry 96 04/14/20 16:18 Const General: comfortable HENMT Head: abrasion, contusion and laceration Eyes Eyelids: eyelids normal Resp Effort & Inspection: normal respiratory effort Auscultation: clear to auscultation bilaterally Cardio Rate: regular rate Rhythm: regular rhythm GI Inspection: non-distended Palpation: soft Skin Other: Patient has superficial abrasions to the frontal aspect of his head and a 4 cm laceration above his left eye. Neuro General: patient alert, patient awake and patient oriented x3 Extrem General: capillary refill normal and No edema Other: No upper extremity tenderness to palpation, pelvis is stable, bilateral lower extremities under Psych Appearance: grossly normal and well kempt Procedures Laceration Repair Laceration 1: Site: face (Forehead) Side (If applicable): left Size (cm): 4 Description: linear Depth: simple, single layer Local Anesthetic: lidocaine 1% and with bicarb Amount of anesthesia used (mL): 6 Pre-repair: wound explored, irrigated extensively and deep structures intact Skin layer closed with: nylon Size (cm): 5-0 Number of sutures: 7 Technique: simple, interrupted Course Orders Ordered: Discontinued Medications Bacitracin (Bacitracin Oint 0.9 Gm Pckt) 1 applic TOP NOW ONE Stop: 04/14/20 18:00 Lidocaine/Sodium Bicarbonate (Lido 1%/Sod Bicarb 8.4% (10ml) 10 Ml Syringe) 10 ml INJ NOW ONE Stop: 04/14/20 16:52 Last Admin: 04/14/20 17:03 Dose: 10 ml Documented by: MMINOR Vital Signs Vital signs: Vital Signs - 8 hr 04/14/20 16:18 04/14/20 16:28 04/14/20 16:30 Pulse Rate 115 H 114 H 116 H Respiratory Rate 16 Blood Pressure 130/83 Pulse Oximetry 96 96 96 04/14/20 16:40 04/14/20 16:58 04/14/20 17:00 Pulse Rate 116 H Respiratory Rate Blood Pressure 151/88 H 136/58 L Pulse Oximetry 97 89 L 04/14/20 17:02 04/14/20 17:30 04/14/20 17:31 Pulse Rate 85 116 H 118 H Respiratory Rate Blood Pressure 103/46 L Pulse Oximetry 82 L 95 95 MDM - Head Injury Lab Data Labs: Urine Dip Bedside Urine Glucose Negative Bedside Urine Bilirubin - Negative Bedside Urine Ketone - Negative Urine Specific [place] 1.015 Bedside Urine Occult Blood - Negative Bedside Urine pH 6.5 Bedside Urine Protein - Negative Bedside Urine Urobilinogen - Negative Bedside Urine Nitrite - Negative Bedside Urine Leukocytes - Negative Esterase Imaging Data CT scan - head: Radiologist's Impression: [place] [id number] [place] [id number] Scan ReportSigned Patient: Ortiz EdenMR#: [id number]: 1Acct:[id number]/Sex: 69 / MDate of Service: 04/14/20Loc: EDAccession Number: [id number] Procedure: CT head/brain wo con Ordering Provider: Tab Gabriel D.O. PROCEDURE: CT HEAD/BRAIN WO CON INDICATIONS: MODIFIED TRAUMA TECHNIQUE: Noncontrast 4.5 mm thick angled axial sections acquired from the foramen magnum to the vertex, with coronal and sagittal reformats. For radiation dose reduction, the following was used: automated exposure control, adjustment of mA and/or kV according to patient size. COMPARISON: [facility], CT, CT HEAD/BRAIN WO CON, 03/17/2020, 12:08. [facility], CT, CT HEAD/BRAIN WO CON, 03/13/2020, 16:31. FINDINGS: Image quality: Excellent. CSF spaces: Basal cisterns are patent. No extra-axial fluid collections. The ventricles are symmetric in size and shape. Note is made of a prior v entriculostomy extending from right calvarium across the midline. Brain: No intracranial masses. There is a small new focus of increased radiodensity within the brain parenchyma, within the centrum semiovale on the right in an area previously normal 03/17/20. There is cerebral volume loss for age, with resultant ventricular and sulcal prominence. There are periventricular and deep white matter chronic small vessel ischemic changes. There is intracranial internal carotid artery atherosclerosis. Skull and face: Calvarium and visualized facial bones appear intact, without suspicious lesions. Sinuses: Visualized sinuses and mastoids are clear. IMPRESSION: Metal artifact from a ventriculostomy site is present superficially over the right calvarium deep to the surface component of the ventriculostomy. The ventricular ostomy catheter crosses the midline as has been previously the case. There is a small focus of new high density material within the deep white matter in this area, measuring 5 x 9 mm in maximal dimension. By appearance this would be suspected to represent a very small amount of subacute or acute hemorrhage if trauma has occurred. Findings immediately called to and discussed with Dr. Gabriel, caring for the patient in the emergency room. Dictated by: Kain Jimenez M.D. on 04/14/2020 at 16:32 Approved by: Kain Jimenez M.D. on 04/14/2020 at 16:39 MDM Narrative Medical decision making narrative: Patient is alert oriented x3. His baseline neurologic status per his . He did receive a head CT today which was different from his head CT at this facility from March 17, 2020. I did contact [facility] and they were able to send us the CT scan from April 12, 2020 which is just 2 days ago. I discussed this CT from April [address] scan from today with Dr. Jimenez with Radiology who stated that his head CT today is unchanged from the 03/25 days ago. The laceration was closed as described above. The abrasion needs no intervention. There is no other orthopedic injuries found on exam or reported by the patient. Will discharge home with instructions for care and return precautions. He expressed understanding and agreement. Discharge Plan Departure Patient Disposition: Home Clinical Impression: Laceration Instructions: DI for Laceration Repair Activity Restrictions/Additional Instructions: The stitches do need to be removed in 7-10 days. Until then he can not bathe as normal. I would recommend keeping them covered with a bandage. He can also use antibiotic ointment over the area. I would not be surprised if he develops a black eye over the next couple days. The numbing medicine that I used to put in the stitches could cause his left eye to droop for the next several hours. That should improve with time. Return to the emergency department for any new or worsening symptoms Prescriptions: No Action levofloxacin 750 mg tablet 750 mg PO DAILY Qty: 10 RF: 0 Referrals: Gurmeet Ray ARNP [Primary Care Provider] -
[2020-04-14] MEDS: LIDO 1%/SOD BICARB 8.4% (10ML) 10 ML SYRINGE INJ (17:03)
[2020-04-14] MEDS: BACITRACIN OINT 0.9 GM PCKT 1 APPLIC TOP (18:26)
--- NOTE | 2020-04-14 18:48 | PC.NURSE ---
report to CHARISSE Peterson at [facility]
== END 2020-04-14 19:00 | disposition home or self-care (01) ==
PROVIDERS: Emergency Provider Emergency Medicine; PCP Nurse Practitioner Family
DX: S01.81XA Laceration without foreign body of other part of head, initial encounter (principal); W06.XXXA Fall from bed, initial encounter; Z79.01 Long term (current) use of anticoagulants
CPT/HCPCS: 12013; 70450; 81003; 99283; 99284

== ENCOUNTER 2020-04-28 13:33 | Emergency (ER) | payer OTHER, MEDICARE, SELFPAY ==
[2020-04-28] VITALS (10 sets, daily range): BP systolic 113–146; BP diastolic 62–82; PULSE 80–116; RESP 14–26; TEMP 36.7–37; O2SAT 95–98
--- NOTE | 2020-04-28 13:40 | ED.AMS ---
HPI - Altered Mental Status General Chief Complaint: Altered Mental Status Stated Complaint: decreased level of conciousness Time Seen by Provider: 04/28/20 13:38 Source: EMS and old records reviewed Limitations: altered mental status History of Present Illness HPI narrative: Patient is a 69-year-old male with history of stroke who resides at [facility] presenting with decreasing mental status. He is normally able to respond and follow commands. However at about 1230 he had decreasing mental status. He is unable to and answer questions to he does have good blue leather setter strength equal bilaterally. He has an obvious parkinsonian tremor in feels warm to touch. 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 He has had shunt failure in the past this seems similar. She states at rehab he has been overall doing expect initially better much more active, able to feed himself get out of bed intact yesterday he crawled on the floor. Sudden change in mental status is concerning for shunt failure. Related Data Previous Rx's Medication Instructions Recorded levofloxacin 750 mg PO DAILY #10 tab 03/04/20 Allergies Allergy/AdvReac Type Severity Reaction Status Date / Time No Known Drug Allergies Allergy Verified 04/14/20 16:22 Review of Systems Review of Systems ROS Unobtainable: Unobtainable due to mental condition Patient History Medical History Hydrocephalus Intracranial hemorrhage Social History Smoking Status: Never smoker Smoking Status: Never smoker alcohol intake frequency: 3 or more drinks per day Alcohol type: beer Substance Use Type: does not use Exam Initial Vital Signs Initial Vital Signs: Vital Signs Pulse Rate 92 H 04/28/20 13:51 Respiratory Rate 21 04/28/20 13:51 Blood Pressure 142/79 H 04/28/20 13:51 Pulse Oximetry 98 04/28/20 13:51 Gen.: Male minimally responsive to voice but does respond to pain HEENT: Laceration noted over left forehead seems to be scabbed and old. No depressions crepitations face symmetric Neck: No JVD Lungs: Clear bilateral Cardiac: No murmur, tachycardic regular Abdomen: Soft nontender feeding tube in place Extremities: No gross bony deformities peripheral pulses intact Neurologic: Integrity Consultant strength equal bilaterally is not follow any commands or answer questions Course Orders Ordered: ED Orders 04/28/20 13:30 Complete Blood Count AUTO DIFF Stat Comprehensive Metabolic Panel Stat Partial Thromboplastin Time Stat Procalcitonin Stat Prothrombin Time INR Stat Thyroid Stimulating Hormone Stat Troponin & CK Cardiac Panel Stat 04/28/20 13:40 EKG-12 Lead Stat 04/28/20 13:41 CT head/brain wo con Stat XR chest 1V Stat 04/28/20 13:55 Urinalysis and Microscopic Stat Urine Culture Stat Urine Drug Screen, Rapid Stat 04/28/20 14:05 Blood Culture Stat Lactate (Lactic Acid) Stat 04/28/20 14:20 COVID19 Stat Discontinued Medications Sodium Chloride (Normal Saline 0.9%) 1,000 mls @ 150 mls/hr IV CONT PAVEL Sodium Chloride (Normal Saline 0.9%) 1,000 mls @ 1,000 mls/hr IV BOLUS ONE Stop: 04/28/20 14:54 Last Infusion: 04/28/20 15:33 Dose: 0 mls/hr Documented by: Admin: 04/28/20 13:58 Dose: 1,000 mls/hr Documented by: VALENTINA Vital Signs Vital signs: Vital Signs - 8 hr 04/28/20 13:51 04/28/20 14:00 04/28/20 14:19 Temperature 98.2 F 98.6 F Pulse Rate 92 H 91 H 86 Respiratory Rate 21 14 Blood Pressure 142/79 H 115/79 116/79 Pulse Oximetry 98 96 97 04/28/20 15:00 04/28/20 15:30 04/28/20 16:00 Temperature 98.4 F 98.2 F 98.4 F Pulse Rate 80 80 91 H Respiratory Rate 14 16 18 Blood Pressure 132/82 113/73 Pulse Oximetry 98 95 04/28/20 16:02 04/28/20 16:30 04/28/20 16:31 Temperature 98.4 F 98.4 F 98.4 F Pulse Rate 86 113 H 116 H Respiratory Rate 14 24 26 H Blood Pressure 130/79 145/75 H Pulse Oximetry 97 98 95 04/28/20 16:58 Temperature 98.0 F Pulse Rate 102 H Respiratory Rate 18 Blood Pressure 142/62 H Pulse Oximetry 95 MDM - Altered Mental Status Lab Data Attestation: I reviewed the patient's lab results. Result diagrams: 04/28/20 13:30 04/28/20 13:30 Labs: Lab Results 04/28/20 04/28/20 04/28/20 Range/Units 13:30 13:30 13:30 WBC 9.2 (4.5-11.0) X10^3/uL RBC 4.24 L (4.5-5.9) X10^6/uL Hgb 13.9 (13.5-17.5) g/dL Hct 40.3 L (41-53) % MCV 95.2 (80-100) fL MCH 32.9 (26-34) PG MCHC 34.6 (30-36) % RDW 14.3 (11.6-14.8) % Plt Count 209 (150-400) X10^3/uL Neut % (Auto) 57.9 (50-75) % Lymph % (Auto) 34.9 (25-40) % Price % (Auto) 6.3 (3-14) % Eos % (Auto) 0.4 L (2-4) % Baso % (Auto) 0.5 (0-2) % Neut # (Auto) 5300 (5271-2140) /uL Lymph # (Auto) 3200 (7889-4971) /uL Price # (Auto) 600 (0-900) /uL Eos # (Auto) 0 (0-450) /uL Baso # (Auto) 0 (0-100) /uL PT 12.3 (10.1-12.7) SECONDS INR 1.1 (0.9-1.3) APTT 32 (26.4-36.2) SECONDS Sodium 135 L (137-145) mmol/L Potassium 4.4 (3.4-5.1) mmol/L Chloride 99 (98-107) mmol/L Carbon Dioxide 33 H (22-32) mmol/L BUN 11 (9-20) mg/dL Creatinine 0.39 L (0.66-1.25) mg/dL Estimated GFR > 60.0 (>60) mL/min BUN/Creatinine Ratio 28.2 H (6-22) Glucose 101 (80-110) mg/dL Lactate (0.7-2.1) mmol/L Calcium 9.8 (8.4-10.2) mg/dL Total Bilirubin 0.4 (0.2-1.3) mg/dL AST 30 (17-59) IU/L ALT 43 (<50) IU/L Alkaline Phosphatase 76 (38-126) U/L Total Creatine Kinase 30 L (55-170) U/L CK-MB (CK-2) TNP CK-MB (CK-2) Rel Index TNP Troponin I < 0.012 (0.01-0.034) ng/mL Total Protein 7.0 (6.3-8.2) g/dL Albumin 3.9 (3.5-5.0) g/dL Globulin 3.1 (1.7-4.1) g/dL Albumin/Globulin Ratio 1.3 (1.0-2.8) Procalcitonin (<0.5) ng/mL TSH (0.47-4.68) uIU/mL Urine Color Urine Appearance Urine pH (4.5-8.0) Ur Specific [place] (1.000-1.035) Urine Protein (Negative) Urine Glucose (UA) (Negative) g/dL Urine Ketones (NEGATIVE) Urine Occult Blood (Negative) Urine Nitrate (Negative) Urine Bilirubin (NEGATIVE) Urine Urobilinogen (0.2) E.U./dL Ur Leukocyte Esterase (NEGATIVE) Urine RBC (0-5/HPF) Urine WBC (0-5/HPF) Amorphous Sediment Urine Bacteria (None) Ur Culture Indicated? U Opiates 300ng/mL cut (Negative) Ur Oxycodone Screen (Negative) Urine Methadone Screen (Negative) Ur Barbiturates Screen (Negative) U Tricyclic Antidepress (Negative) Ur Phencyclidine Scrn (Negative) Ur Amphetamines Screen (Negative) U Methamphetamines Scrn (Negative) Ur MDMA Scrn (Ecstasy) (Negative) U Benzodiazepines Scrn (Negative) Urine Cocaine Screen (Negative) U Marijuana (THC) Screen (Negative) SARS-CoV-2 (PCR) (Negative) 04/28/20 04/28/20 04/28/20 Range/Units 13:30 13:30 13:55 WBC (4.5-11.0) X10^3/uL RBC (4.5-5.9) X10^6/uL Hgb (13.5-17.5) g/dL Hct (41-53) % MCV (80-100) fL MCH (26-34) PG MCHC (30-36) % RDW (11.6-14.8) % Plt Count (150-400) X10^3/uL Neut % (Auto) (50-75) % Lymph % (Auto) (25-40) % Price % (Auto) (3-14) % Eos % (Auto) (2-4) % Baso % (Auto) (0-2) % Neut # (Auto) (2929-5083) /uL Lymph # (Auto) (2922-9689) /uL Price # (Auto) (0-900) /uL Eos # (Auto) (0-450) /uL Baso # (Auto) (0-100) /uL PT (10.1-12.7) SECONDS INR (0.9-1.3) APTT (26.4-36.2) SECONDS Sodium (137-145) mmol/L Potassium (3.4-5.1) mmol/L Chloride (98-107) mmol/L Carbon Dioxide (22-32) mmol/L BUN (9-20) mg/dL Creatinine (0.66-1.25) mg/dL Estimated GFR (>60) mL/min BUN/Creatinine Ratio (6-22) Glucose (80-110) mg/dL Lactate (0.7-2.1) mmol/L Calcium (8.4-10.2) mg/dL Total Bilirubin (0.2-1.3) mg/dL AST (17-59) IU/L ALT (<50) IU/L Alkaline Phosphatase (38-126) U/L Total Creatine Kinase (55-170) U/L CK-MB (CK-2) CK-MB (CK-2) Rel Index Troponin I (0.01-0.034) ng/mL Total Protein (6.3-8.2) g/dL Albumin (3.5-5.0) g/dL Globulin (1.7-4.1) g/dL Albumin/Globulin Ratio (1.0-2.8) Procalcitonin < 0.05 (<0.5) ng/mL TSH 0.775 (0.47-4.68) uIU/mL Urine Color Yellow Urine Appearance Clear Urine pH 6.5 (4.5-8.0) Ur Specific [place] 1.010 (1.000-1.035) Urine Protein Negative (Negative) Urine Glucose (UA) Negative (Negative) g/dL Urine Ketones Negative (NEGATIVE) Urine Occult Blood Trace-intact (Negative) Urine Nitrate Negative (Negative) Urine Bilirubin Negative (NEGATIVE) Urine Urobilinogen 0.2 (0.2) E.U./dL Ur Leukocyte Esterase 2+ H (NEGATIVE) Urine RBC 5-10/hpf H (0-5/HPF) Urine WBC 5-10/hpf H (0-5/HPF) Amorphous Sediment 2+ Urine Bacteria Moderate (10-30) H (None) Ur Culture Indicated? Specimen cultured U Opiates 300ng/mL cut (Negative) Ur Oxycodone Screen (Negative) Urine Methadone Screen (Negative) Ur Barbiturates Screen (Negative) U Tricyclic Antidepress (Negative) Ur Phencyclidine Scrn (Negative) Ur Amphetamines Screen (Negative) U Methamphetamines Scrn (Negative) Ur MDMA Scrn (Ecstasy) (Negative) U Benzodiazepines Scrn (Negative) Urine Cocaine Screen (Negative) U Marijuana (THC) Screen (Negative) SARS-CoV-2 (PCR) (Negative) 04/28/20 04/28/20 04/28/20 Range/Units 13:55 14:05 14:20 WBC (4.5-11.0) X10^3/uL RBC (4.5-5.9) X10^6/uL Hgb (13.5-17.5) g/dL Hct (41-53) % MCV (80-100) fL MCH (26-34) PG MCHC (30-36) % RDW (11.6-14.8) % Plt Count (150-400) X10^3/uL Neut % (Auto) (50-75) % Lymph % (Auto) (25-40) % Price % (Auto) (3-14) % Eos % (Auto) (2-4) % Baso % (Auto) (0-2) % Neut # (Auto) (1672-8511) /uL Lymph # (Auto) (7636-1334) /uL Price # (Auto) (0-900) /uL Eos # (Auto) (0-450) /uL Baso # (Auto) (0-100) /uL PT (10.1-12.7) SECONDS INR (0.9-1.3) APTT (26.4-36.2) SECONDS Sodium (137-145) mmol/L Potassium (3.4-5.1) mmol/L Chloride (98-107) mmol/L Carbon Dioxide (22-32) mmol/L BUN (9-20) mg/dL Creatinine (0.66-1.25) mg/dL Estimated GFR (>60) mL/min BUN/Creatinine Ratio (6-22) Glucose (80-110) mg/dL Lactate 1.9 (0.7-2.1) mmol/L Calcium (8.4-10.2) mg/dL Total Bilirubin (0.2-1.3) mg/dL AST (17-59) IU/L ALT (<50) IU/L Alkaline Phosphatase (38-126) U/L Total Creatine Kinase (55-170) U/L CK-MB (CK-2) CK-MB (CK-2) Rel Index Troponin I (0.01-0.034) ng/mL Total Protein (6.3-8.2) g/dL Albumin (3.5-5.0) g/dL Globulin (1.7-4.1) g/dL Albumin/Globulin Ratio (1.0-2.8) Procalcitonin (<0.5) ng/mL TSH (0.47-4.68) uIU/mL Urine Color Urine Appearance Urine pH (4.5-8.0) Ur Specific [place] (1.000-1.035) Urine Protein (Negative) Urine Glucose (UA) (Negative) g/dL Urine Ketones (NEGATIVE) Urine Occult Blood (Negative) Urine Nitrate (Negative) Urine Bilirubin (NEGATIVE) Urine Urobilinogen (0.2) E.U./dL Ur Leukocyte Esterase (NEGATIVE) Urine RBC (0-5/HPF) Urine WBC (0-5/HPF) Amorphous Sediment Urine Bacteria (None) Ur Culture Indicated? U Opiates 300ng/mL cut Negative (Negative) Ur Oxycodone Screen Negative (Negative) Urine Methadone Screen Negative (Negative) Ur Barbiturates Screen Negative (Negative) U Tricyclic Antidepress Negative (Negative) Ur Phencyclidine Scrn Negative (Negative) Ur Amphetamines Screen Negative (Negative) U Methamphetamines Scrn Negative (Negative) Ur MDMA Scrn (Ecstasy) Negative (Negative) U Benzodiazepines Scrn Negative (Negative) Urine Cocaine Screen Negative (Negative) U Marijuana (THC) Screen Negative (Negative) SARS-CoV-2 (PCR) Negative (Negative) Imaging Data Chest x-ray: Radiologist's Impression: PROCEDURE: XR CHEST 1V INDICATIONS: confusion TECHNIQUE: One view of the chest was acquired. COMPARISON: [facility], CR, XR CHEST 1V, 03/04/2020, 14:32. FINDINGS: Surgical changes and devices: None. Lungs and pleura: Lungs are clear considering light film technique. No pleural effusions or pneumothorax. Mediastinum: Mediastinal contours appear normal. Heart size is normal. Bones and chest wall: No suspicious bony lesions. Overlying soft tissues appear unremarkable. IMPRESSION: Light film technique, no acute disease found. Source of confusion is not identified. Dictated by: Kain Jimenez M.D. on 04/28/2020 at 14:27 CT scan - head: Radiologist's Impression: PROCEDURE: CT HEAD/BRAIN WO CON INDICATIONS: decreased mental status TECHNIQUE: Noncontrast 4.5 mm thick angled axial sections acquired from the foramen magnum to the vertex, with coronal and sagittal reformats. For radiation dose reduction, the following was used: automated exposure control, adjustment of mA and/or kV according to patient size. COMPARISON: [facility], CT, CT HEAD/BRAIN WO CON, 04/14/2020, 16:18. [facility], CT, CT HEAD/BRAIN WO CON, 03/17/2020, 12:08. FINDINGS: Image quality: Excellent. CSF spaces: Basal cisterns are patent. No extra-axial fluid collections. Ventricles are normal in size and shape. Ventriculostomy from right-sided approach crosses the midline and terminates at the right anterior border of the 3rd ventricle. Brain: No midline shift. No intracranial masses or hemorrhage. [place]-white matter interface is normal. There is a slight amount of residual postprocedural hemorrhage within the right hemispheric centrum semiovale, as was previously documented 04/14/20. This continues to resolve. Skull and face: Calvarium and visualized facial bones are intact, without suspicious lesions. Sinuses: Visualized sinuses and mastoids are clear. IMPRESSION: A definite source of new altered mental status is not seen. A small focus of hemorrhage previously identified related to manipulation on the of a ventriculostomy catheter continues to involuting. No new hemorrhage or hydrocephalus is seen. ECG Data Attestation: I personally reviewed and interpreted this ECG as follows: Interpretation: Normal sinus rhythm rate 104 p.r. interval 148 QRS 80 QTC [address] changes or T-wave inversions MDM Narrative Medical decision making narrative: 's information at bedside is very helpful. There is no sign of infection patient is afebrile no leukocytosis. He is still maintaining his airway but is somnolent. 4pm. Dr. Mahoney neurosurgery at [facility] has been updated patient's symptoms test results agrees with transfer shunt failure is obvious on CT. agrees transfer for by air lift. I discussed all findings with the patients , Education has been performed regarding treatment plan, diagnosis, warning signs and symptoms and all concerns have been addressed. Verbally agree with and understood all of the above. Discharge Plan Departure Patient Disposition: [facility] Clinical Impression: Brain ventricular shunt obstruction Qualifiers: Encounter type: initial encounter Qualified Code(s): T85.09XA - Other mechanical complication of ventricular intracranial (communicating) shunt, initial encounter Prescriptions: No Action levofloxacin 750 mg tablet 750 mg PO DAILY Qty: 10 RF: 0 Referrals: Gurmeet Ray ARNP [Primary Care Provider] -
[2020-04-28 13:48] LABS: Add Manual Diff / Slide Review NO; Basophils Absolute Auto 0 /uL (0-100); Basophils Percent Auto 0.5 % (0-2); Eosinophils Absolute Auto 0 /uL (0-450); Eosinophils Percent Auto 0.4 % (2-4); Hematocrit 40.3 % (41-53); Hemoglobin 13.9 g/dL (13.5-17.5); Lymphocytes Absolute Auto 3200 /uL (1100-4500); Lymphocytes Percent Auto 34.9 % (25-40); Mean Corpuscular HGB Conc 34.6 % (30-36); Mean Corpuscular Hemoglobin 32.9 PG (26-34); Mean Corpuscular Volume 95.2 fL (80-100); Monocytes Absolute Auto 600 /uL (0-900); Monocytes Percent Auto 6.3 % (3-14); Neutrophils Absolute Auto 5300 /uL (1500-7000); Neutrophils Percent Auto 57.9 % (50-75); Platelet Count 209 X10^3/uL (150-400); Red Blood Cell Count 4.24 X10^6/uL (4.5-5.9); Red Cell Distribution Width 14.3 % (11.6-14.8); White Blood Cell Count 9.2 X10^3/uL (4.5-11.0)
[2020-04-28] MEDS: SODIUM CHLORIDE 0.9% 1,000 ML 1000 ML IV (13:58)
--- NOTE | 2020-04-28 14:02 | PC.NURSE ---
Temp probe milligan
[2020-04-28 14:09] LABS: Appearance Urine UA CLEAR; Bilirubin Urine UA NEGATIVE (NEGATIVE); Color Urine UA YELLOW; Glucose Urine UA NEGATIVE (Negative); Ketones Urine UA NEGATIVE (NEGATIVE); Leukocyte Esterase Urine UA 2+ (NEGATIVE); Nitrite Urine UA NEGATIVE (Negative); Occult Blood Urine UA TRACE-INTACT (Negative); Protein Urine UA NEGATIVE (Negative); Urobilinogen Urine UA 0.2 E.U./dL (0.2); pH Urine UA 6.5 (4.5-8.0)
[2020-04-28 14:21] LABS: INR 1.1 (0.9-1.3); Prothrombin Time 12.3 SECONDS (10.1-12.7)
[2020-04-28 14:23] LABS: PTT Partial Thromboplastin Tim 32 SECONDS (26.4-36.2)
[2020-04-28 14:26] LABS: UR Morphine/Opiate cutoff 300 Negative (Negative); Ur Creatinine Normal (Normal); Ur Specific Gravity Normal (Normal); Urine Amphetamines Negative (Negative); Urine Barbiturates Negative (Negative); Urine Benzodiazepines Negative (Negative); Urine Cocaine Negative (Negative); Urine MDMA Negative (Negative); Urine Methadone Negative (Negative); Urine Methamphetamines Negative (Negative); Urine Oxycodone Negative (Negative); Urine Phencyclidine Negative (Negative); Urine Tetrahydrocannabinol Negative (Negative); Urine Tricyclic Antidepressant Negative (Negative); Urine pH Normal (Normal)
[2020-04-28 14:28] LABS: Lactate (Lactic Acid) 1.9 mmol/L (0.7-2.1)
[2020-04-28 14:29] LABS: Alanine Aminotransferase 43 IU/L (<50); Albumin 3.9 g/dL (3.5-5.0); Albumin Globulin Ratio 1.3 (1.0-2.8); Alkaline Phosphatase 76 U/L (38-126); Aspartate Aminotransferase 30 IU/L (17-59); BUN Creatinine Ratio 28.2 (6-22); Bilirubin Total 0.4 mg/dL (0.2-1.3); Blood Urea Nitrogen 11 mg/dL (9-20); Calcium 9.8 mg/dL (8.4-10.2); Carbon Dioxide 33 mmol/L (22-32); Chloride 99 mmol/L (98-107); Creatine Kinase 30 U/L (55-170); Estimated Glomerular Filt Rate > 60.0 mL/min (>60); Globulin 3.1 g/dL (1.7-4.1); Glucose 101 mg/dL (80-110); HEMOLYSIS 19 (0-50); Potassium 4.4 mmol/L (3.4-5.1); Sodium 135 mmol/L (137-145)
[2020-04-28 14:31] LABS: Thyroid Stimulating Hormone 0.775 uIU/mL (0.47-4.68)
[2020-04-28 14:32] LABS: Amorphous Sediment Urine 2+; RBC Urine 5-10/HPF (0-5/HPF); WBC Urine 5-10/HPF (0-5/HPF)
[2020-04-28 14:33] LABS: Bacteria Urine Moderate (10-30); Culture Indicated Urine Specimen Cultured
[2020-04-28 14:41] LABS: Troponin I < 0.012 ng/mL (0.01-0.034)
[2020-04-28 14:42] LABS: COVID19 -Nasal RAPID Negative (Negative)
[2020-04-28 14:48] LABS: Procalcitonin < 0.05 ng/mL (<0.5)
== END 2020-04-28 16:58 | disposition short-term general hospital (02) ==
PROVIDERS: Emergency Provider Emergency Medicine; PCP Nurse Practitioner Family
DX: T85.09XA Other mechanical complication of ventricular intracranial (communicating) shunt, initial encounter (principal); R41.82 Altered mental status, unspecified; Z20.822 Contact with and (suspected) exposure to COVID-19
CPT/HCPCS: 36415; 70450; 71045; 80053; 80305; 81001; 82550; 83605; 84145; 84443; 84484; 85025; 85610; 85730; 87040; 87077; 87086; 87186; 87635; 93005; 96360; 96361; 99284; C9803

== ENCOUNTER → 2020-05-17 15:11 | Outpatient (ROUT) | payer MEDICARE, SELFPAY ==
[2020-05-17 15:14] LABS: Bacteria Urine None Seen
[2020-05-17 15:34] LABS: Appearance Urine UA CLEAR; Bilirubin Urine UA NEGATIVE (NEGATIVE); Color Urine UA YELLOW; Glucose Urine UA NEGATIVE (Negative); Ketones Urine UA NEGATIVE (NEGATIVE); Leukocyte Esterase Urine UA NEGATIVE (NEGATIVE); Nitrite Urine UA NEGATIVE (Negative); Occult Blood Urine UA NEGATIVE (Negative); Protein Urine UA NEGATIVE (Negative); Specific Gravity Urine UA 1.015 (1.000-1.035); Urobilinogen Urine UA 0.2 E.U./dL (0.2)
[2020-05-17 16:09] LABS: Amorphous Sediment Urine 1+; Culture Indicated Urine Cult Not Indicated; Other Crystals Urine 1+ Amorphous; RBC Urine 0-1/HPF (0-5/HPF); Squamous Epithelial Cell Urine 1-5 /HPF (0-5/HPF); Transitional Epi Cells Urine 0-1/HPF (0-5/HPF); WBC Urine 0-1/HPF (0-5/HPF)
== END ==
PROVIDERS: PCP Nurse Practitioner Family; Visit Provider Physician Assistant
DX: R35.0 Frequency of micturition (principal)
CPT/HCPCS: 81001